=== PATIENT | female | born 1970 | race Caucasian/White ===

== ENCOUNTER 2019-11-10 23:19 | Emergency (ER) | payer SELFPAY ==
[~2019-11-10] VITALS: Ht 162 cm; Wt 103.8 kg
[~2019-11-10 23:19] MED LIST: ALDACTONE25 MG; LEVO25TA45
[2019-11-10] MEDS ORDERED: ASPIRIN 81 MG CHEW (CHILDREN'S ASA) PO ONE (23:30)
[2019-11-10] MEDS ORDERED: ANTACID SUSP 30 ML UDC (MYLANTA) PO ONE (23:30)
[2019-11-10] MEDS ORDERED: FAMOTIDINE 20MG/2ML IV (PEPCID) IVP ONE (23:30)
[2019-11-10] MEDS ORDERED: ONDANSETRON 4 MG/2 ML (SDV) Z0FRAN IVP ONE (23:30)
[2019-11-10] MEDS ORDERED: LIDOCAINE 2% VISCOUS 15 ML UDC PO ONE (23:30)
[2019-11-10 23:36] LABS: BASOPHILS % (AUTO) 0 % (0-10); EOSINOPHILS # (AUTO) 0.2 10^3/uL (0.0-0.3); EOSINOPHILS % (AUTO) 2 % (0-10); HEMATOCRIT 42 % (35-52); HEMOGLOBIN 13.7 G/DL (11.5-16.0); LYMPHOCYTES % (AUTO) 38 % (12-44); MEAN CORPUSCULAR HEMOGLOBIN 30 PG (25-34); MEAN CORPUSCULAR HGB CONC 33 G/DL (32-36); MEAN CORPUSCULAR VOLUME 92 FL (80-99); MEAN PLATELET VOLUME 9.8 FL (7.4-10.4); MONOCYTES # (AUTO) 0.7 X 10^3 (0.0-1.0); MONOCYTES % (AUTO) 8 % (0-12); NEUTROPHILS # (AUTO) 4.1 X 10^3 (1.8-7.8); NEUTROPHILS % (AUTO) 52 % (42-75); PLATELET COUNT 281 10^3/uL (130-400); RED CELL DISTRIBUTION WIDTH 14.1 % (10.0-14.5); WHITE BLOOD COUNT 7.9 10^3/uL (4.3-11.0)
[2019-11-10 23:45] LABS: PROTHROMBIN TIME PATIENT 13.1 SEC (12.2-14.7)
[2019-11-10 23:55] LABS: ALANINE AMINOTRANSFERASE 14 U/L (0-55); ALBUMIN 3.9 GM/DL (3.2-4.5); ALKALINE PHOSPHATASE 60 U/L (40-136); BILIRUBIN,TOTAL 0.2 MG/DL (0.1-1.0); BUN/CREATININE RATIO 18; CALCIUM 9.7 MG/DL (8.5-10.1); CARBON DIOXIDE 23 MMOL/L (21-32); CHLORIDE 105 MMOL/L (98-107); CREATININE SERUM 0.79 MG/DL (0.60-1.30); GFR ESTIMATED > 60; GLUCOSE 129 MG/DL (70-105); MAGNESIUM 1.9 MG/DL (1.6-2.4); POTASSIUM 3.8 MMOL/L (3.6-5.0); SODIUM 139 MMOL/L (135-145); TOTAL PROTEIN 7.5 GM/DL (6.4-8.2)
--- NOTE | 2019-11-11 00:02 | NUR ---
Patient states her pain is slightly improved and rates her pain at a 4 out of 10.
--- NOTE | 2019-11-11 00:54 | NUR ---
Report given to Joanne FLORES.
[2019-11-11 02:09] LABS: CHOLESTEROL 137 MG/DL (< 200); HDL CHOLESTEROL 54 MG/DL (40-60); TRIGLYCERIDES 86 MG/DL (<150); VLDL CHOLESTEROL 17 MG/DL (5-40)
--- NOTE | 2019-11-11 02:37 | ED Chest Pain ---
General Chief Complaint: Chest Pain Stated Complaint: CP Nursing Triage Note: Patient ambulatory to ER room 10 with spouse with complaint of chest pain that began tonight around 21:30. Patient states she was getting ready for bed when the chest pain started. She describes the pain as to the center of her chest radiating into her back and describes it as heaviness/tightness to the chest. Patient states the pain is worse with lying down. She did take Tums 1 hour ago. She does complain of nausea. Nursing Sepsis Screen: No Definite Risk Source: patient Exam Limitations: no limitations History of Present Illness Date Seen by Provider: Nov 11, 2019 Allergies and Home Medications Allergies Coded Allergies: No Known Drug Allergies (Verified Allergy, Unknown, 03/03/09) Past Vzagfin-Rvzwdh-Iwkxnb Hx Patient Social History Alcohol Use: Denies Use Recreational Drug Use: No Smoking Status: Never a Smoker 2nd Hand Smoke Exposure: No Recent Foreign Travel: No Contact w/Someone Who Travel: No Recent Infectious Disease Expo: No Recent Hopitalizations: No Physical Abuse: No Sexual Abuse: No Mistreated: No Fear: No Seasonal Allergies Seasonal Allergies: No Past Medical History Surgeries: Yes (shoulder, knee) Orthopedic Respiratory: Yes Asthma Cardiac: No Neurological: No Last Menstrual Period: Oct 14, 2019 Reproductive Disorders: No Sexually Transmitted Disease: Yes (HPV) Genitourinary: No Gastrointestinal: No Musculoskeletal: No Endocrine: No Cancer: No Psychosocial: No Blood Disorders: No Physical Exam Vital Signs Vital Signs - First Documented 11/10/19 11/11/19 23:19 02:43 Temp 37.1 Pulse 82 Resp 18 B/P (MAP) 168/101 (123) Pulse Ox 100 O2 Delivery Room Air Capillary Refill : Less Than 3 Seconds Height, Weight, BMI Height: '" Weight: lbs. oz. kg; 39.00 BMI Method: Progress/Results/Core Measures Results/Orders Lab Results Laboratory Tests Test 11/10/19 23:30 11/11/19 01:45 Range/Units White Blood Count 7.9 4.3-11.0 10^3/uL Red Blood Count 4.54 4.35-5.85 10^6/uL Hemoglobin 13.7 11.5-16.0 G/DL Hematocrit 42 35-52 % Mean Corpuscular Volume 92 80-99 FL Mean Corpuscular Hemoglobin 30 25-34 PG Mean Corpuscular Hemoglobin Concent 33 32-36 G/DL Red Cell Distribution Width 14.1 10.0-14.5 % Platelet Count 281 130-400 10^3/uL Mean Platelet Volume 9.8 7.4-10.4 FL Neutrophils (%) (Auto) 52 42-75 % Lymphocytes (%) (Auto) 38 12-44 % Monocytes (%) (Auto) 8 0-12 % Eosinophils (%) (Auto) 2 0-10 % Basophils (%) (Auto) 0 0-10 % Neutrophils # (Auto) 4.1 1.8-7.8 X 10^3 Lymphocytes # (Auto) 3.0 1.0-4.0 X 10^3 Monocytes # (Auto) 0.7 0.0-1.0 X 10^3 Eosinophils # (Auto) 0.2 0.0-0.3 10^3/uL Basophils # (Auto) 0.0 0.0-0.1 10^3/uL Prothrombin Time 13.1 12.2-14.7 SEC INR Comment 1.0 0.8-1.4 Activated Partial Thromboplast Time 30 24-35 SEC Sodium Level 139 135-145 MMOL/L Potassium Level 3.8 3.6-5.0 MMOL/L Chloride Level 105 98-107 MMOL/L Carbon Dioxide Level 23 21-32 MMOL/L Anion Gap 11 5-14 MMOL/L Blood Urea Nitrogen 14 7-18 MG/DL Creatinine 0.79 0.60-1.30 MG/DL Estimat Glomerular Filtration Rate > 60 BUN/Creatinine Ratio 18 Glucose Level 129 H 70-105 MG/DL Calcium Level 9.7 8.5-10.1 MG/DL Corrected Calcium 9.8 8.5-10.1 MG/DL Magnesium Level 1.9 1.6-2.4 MG/DL Total Bilirubin 0.2 0.1-1.0 MG/DL Aspartate Amino Transf (AST/SGOT) 16 5-34 U/L Alanine Aminotransferase (ALT/SGPT) 14 0-55 U/L Alkaline Phosphatase 60 40-136 U/L Myoglobin 20.8 10.0-92.0 NG/ML Troponin I < 0.028 < 0.028 <0.028 NG/ML Total Protein 7.5 6.4-8.2 GM/DL Albumin 3.9 3.2-4.5 GM/DL Triglycerides Level 86 <150 MG/DL Cholesterol Level 137 < 200 MG/DL LDL Cholesterol Direct 79 1-129 MG/DL VLDL Cholesterol 17 5-40 MG/DL HDL Cholesterol 54 40-60 MG/DL My Orders Orders - BENJAMIN GUERRERO MD Cbc With Automated Diff (11/10/19 23:21) Magnesium (11/10/19 23:21) Chest 1 View, Ap/Pa Only (11/10/19 23:21) Ekg Tracing (11/10/19 23:21) Comprehensive Metabolic Panel (11/10/19 23:21) Myoglobin Serum (11/10/19 23:21) Protime With Inr (11/10/19 23:21) Partial Thromboplastin Time (11/10/19 23:21) O2 (11/10/19 23:21) Monitor-Rhythm Ecg Trace Only (11/10/19 23:21) Ed Iv/Invasive Line Start (11/10/19 23:21) Troponin I (11/10/19 23:21) Famotidine Injection (Pepcid Injection) (11/10/19 23:30) Ondansetron Injection (Zofran Injectio (11/10/19 23:30) Lidocaine 2% Viscous 15 Ml (Xylocaine Vi (11/10/19 23:30) Antacid Suspension (Mylanta Suspension (11/10/19 23:30) Aspirin Chewable Tablet (Baby Aspirin Ch (11/10/19 23:30) Troponin I (11/11/19 01:30) Lipid Panel (11/11/19 01:45) Medications Given in ED Current Medications Medications Dose Ordered Sig/Deon Route Start Time Stop Time Status Last Admin Dose Admin Al Hydrox/Mg Hydrox/Simethicone 30 ml ONCE ONCE PO 11/10/19 23:30 11/10/19 23:32 DC 11/10/19 23:38 30 ML Aspirin 324 mg ONCE ONCE PO 11/10/19 23:30 11/10/19 23:32 DC 11/10/19 23:35 324 MG Famotidine 20 mg ONCE ONCE IVP 11/10/19 23:30 11/10/19 23:31 DC 11/10/19 23:38 20 MG Lidocaine HCl 15 ml ONCE ONCE PO 11/10/19 23:30 11/10/19 23:32 DC 11/10/19 23:38 15 ML Ondansetron HCl 4 mg ONCE ONCE IVP 11/10/19 23:30 11/10/19 23:32 DC 11/10/19 23:38 4 MG Vital Signs/I&O 11/10/19 11/11/19 23:19 02:43 Temp 37.1 37.1 Pulse 82 68 Resp 18 18 B/P (MAP) 168/101 (123) 151/86 (123) Pulse Ox 100 O2 Delivery Room Air Blood Pressure Mean: 123 Initial ECG Impression Date: Nov 10, 2019 Initial ECG Impression Time: 23:20 Initial ECG Rate: 81 Initial ECG Rhythm: Normal Sinus Initial ECG Intervals: Normal Initial ECG Impression: Normal Comment Normal sinus rhythm with no ST elevation or depression. No abnormal intervals or axis deviation. Diagnostic Imaging Diagonstic Imaging: Xray Plain Films/CT/US/NM/MRI: chest Comments Chest x-ray viewed by me and report not yet available. No acute abnormalities appreciated. Departure Impression Primary Impression: Chest pain Qualified Codes: R07.9 - Chest pain, unspecified Disposition: 01 HOME, SELF-CARE Condition: Improved Departure-Patient Inst. Decision time for Depature: 02:35 Referrals: NO,LOCAL PHYSICIAN (PCP/Family) Primary Care Physician Patient Instructions: Chest Pain (DC) Add. Discharge Instructions: Follow-up with your primary care provider soon as possible for monitoring of your blood pressure and evaluation of your chest pain Because your chest pain may be related to acid reflux, take an antacid rlab-uor-rsyuzyn such as Pepcid (famotidine) or Prilosec (omeprazole) 20 mg twice daily for the next couple of weeks. Also avoid the following: Eating large meals, eating close to bedtime, caffeine, carbonation, chocolate, citrus fruits and juices, tomato products, tobacco, alcohol, NSAID medications such as ibuprofen or naproxen, fatty or greasy foods, mints, spicy food, or anything else you know irritate your stomach. Take aspirin 81 mg daily until otherwise instructed by your doctor. Return to the emergency room if you have worsening symptoms. All discharge instructions reviewed with patient and/or family. Voiced understanding. Copy Copies To 1: DADA GLASER JOSHUA T MD Nov 11, 2019 02:37
[2019-11-11 02:43] VITALS: BP 151/86
--- NOTE | 2019-11-11 06:21 | Diagnostic Imaging Report ---
INDICATION: Chest pain. COMPARISON: None. FINDINGS: Single view of the chest demonstrates clear lungs bilaterally. The heart is normal. There is no pneumothorax. Osseous structures normal. IMPRESSION: Negative chest. Dictated by: Dictated on workstation # [id number]
== END 2019-11-11 02:51 | disposition home or self-care (01) ==
LOC: EDUNIT# 23:19 → ER 23:20
DX: R07.9 Chest pain, unspecified (principal)
CPT/HCPCS: 36415; 71045; 80053; 80061; 83735; 83874; 84484; 85025; 85610; 85730; 93005; 93041; 96374; 96375

== ENCOUNTER → 2020-10-26 | Outpatient (CLI) | payer OTHER ==
--- NOTE | 2020-10-26 12:38 | Diagnostic Imaging Report ---
INDICATION: Routine screening. COMPARISON: 08/09/2016 and 08/13/2014. TECHNIQUE: 2D and 3D bilateral screening mammography was performed with CAD. FINDINGS: Scattered fibroglandular densities are identified bilaterally. A benign nodule in the upper left breast is noted. There are no spiculated masses or malignant appearing microcalcifications. The axillae are unremarkable. IMPRESSION: No mammographic features suspicious for malignancy are identified. ACR BI-RADS Category 2: Benign findings. Result letter will be mailed to the patient. Note: At least 10% of breast cancer is not imaged by mammography. Dictated by: Dictated on workstation # [id number]
== END ==
LOC: RAD 07:49
PROVIDERS: ATTEND Nurse Practitioner Family
DX: Z12.31 Encounter for screening mammogram for malignant neoplasm of breast (principal)
CPT/HCPCS: 77063; 77067

== ENCOUNTER 2021-11-04 05:37 | Outpatient (CLI) | payer BC ==
[~2021-11-04] VITALS: Ht 162.5 cm; Wt 99.0 kg
[2021-11-06] MEDS ORDERED: LISI10TA25 PO (11:02)
[2021-11-06] MEDS ORDERED: CETI10CA PO (11:02)
== END 2021-11-06 11:11 | disposition home or self-care (01) ==
LOC: PREOP 05:37
PROVIDERS: ATTEND Surgery
DX: Z01.818 Encounter for other preprocedural examination (principal)

== ENCOUNTER 2021-11-11 07:15 | Day surgery (SDC) | payer BC ==
[2021-11-11] VITALS (12 sets, daily range): BP systolic 120–139; BP diastolic 49–79
[~2021-11-11] VITALS: Ht 162.5 cm; Wt 99.0 kg
[~2021-11-11 07:15] MED LIST changes: +CETI10CA PO; +LISI10TA25 PO
--- NOTE | 2021-11-11 08:01 | Progress Note-Pre Operative ---
Pre-Operative Progress Note H&P Reviewed The H&P was reviewed, patient examined and no changes noted. Date Seen by Provider: Nov 11, 2021 Time Seen by Provider: 08:00 Date H&P Reviewed: Nov 11, 2021 Time H&P Reviewed: 08:00 Pre-Operative Diagnosis: cholelithiasis HUMA FRAUSTO DO Nov 11, 2021 08:00
[2021-11-11] MEDS ORDERED: ceFAZolin 2 GM IV Premixed 50 ML IV ONE (08:15)
[2021-11-11] MEDS: LACTATED RINGERS 1,000 ML IV PRN ×2 (08:22→11:36)
[2021-11-11] MEDS ORDERED: MIDAZOLAM 2 MG/2 ML (VERSED) VIAL ONE (08:52)
[2021-11-11] MEDS ORDERED: fentaNYL INJ 100 MCG/2 ML AMP ONE (08:52)
[2021-11-11] MEDS ORDERED: SEVOFLURANE (ULTANE) 15 ML INHAL SOLN ONE ×2 (08:52→10:24)
[2021-11-11] MEDS ORDERED: proPOfol 200 MG/20 ML (DIPRIVAN) VIAL IV ONE (08:52)
[2021-11-11] MEDS ORDERED: ONDANSETRON 4 MG/2 ML (SDV) Z0FRAN ONE (08:52)
[2021-11-11] MEDS ORDERED: LIDOCAINE PF 2% 5 ML (XYLOCAINE) VIAL ONE (08:52)
[2021-11-11] MEDS ORDERED: LIDOCAINE/EPI 1%-1:200,000 (XYLOCAINE) 30 ML VIAL ONE (09:07)
[2021-11-11] MEDS ORDERED: ROCURONIUM 50 MG/5 ML (ZEMURON) VIAL IV ONE (10:23)
[2021-11-11] MEDS ORDERED: GLYCOPYRROLATE 0.2 MG/ML (ROBINUL) 2 ML VIAL ONE (10:28)
[2021-11-11] MEDS ORDERED: NEOSTIGMINE 3 MG/3 ML VIAL ONE (10:29)
[2021-11-11] MEDS ORDERED: ACHD5005 PO (10:33)
[2021-11-11] MEDS ORDERED: DOCU-143 PO (10:33)
--- NOTE | 2021-11-11 10:34 | Discharge Inst-Simple/Standard ---
Discharge Inst-Standard Discharge Medications New, Converted or Re-Newed RX: Transmitted to Pharmacy Patient Instructions/Follow Up Plan of Care/Instructions/FU: 2-3 weeks anabel Activity as Tolerated: No Discharge Diet: Regular Diet Other Inst to Patient Follow up Appt: Make appointment for 2 weeks. Instructions: No lifting greater than 10 pounds. No strenuous activity. May shower in 24 hours, no tub bath or soaking. Use incentive spirometer at home as directed. No Smoking Skin/Wound Care: You have special glue over incision, it will fall off on it's own. Symptoms to Report: Appetite Changes, Extremity Discoloration, Numbness/Tingling, Swelling Increased, Bleeding Excessive, Eyesight Changes, Pain Increased, Urine Color Change, Constipation(Persistent), Fever over 101 degree F, Pain/Pressure in chest, Urinating Difficulty, Cough Up/Vomit Blood, Heart Beat Irreg/Pounding, Pain/Pressure in jaw, Vaginal Bleeding Increase, Cramps in feet or legs, Lightheadedness, Pain/Pressure in shoulder, Diarrhea(Persistent), Memory Changes Suddenly, Questions/Concerns, Weight gain consecutive days, Dizziness/Fainting, Nausea/Vomiting, Shortness of Breath, Weight gain over 2 pounds. If eyes or skin turn yellow notify physician. If questions or concerns contact your physician Or seek help at emergency department. HUMA FRAUSTO DO Nov 11, 2021 10:34
--- NOTE | 2021-11-11 10:36 | Progress Note-Post Operative ---
Post-Operative Progess Note Surgeon (s)/Art History Instructor (s) Surgeon HUMA FRAUSTO DO Art History Instructor: Dr. Edge to assist in retraction dissection and closure. Pre-Operative Diagnosis cholelithiasis Post-Operative Diagnosis same Procedure & Operative Findings Date of Procedure 11/11/21 Procedure Performed/Findings PROCEDURE: Laparoscopic cholecystectomy with intraoperative cholangiogram. COMPLICATIONS: None. PROCEDURE: The patient was taken to the operating suite and was prepped and draped in sterile fashion. A surgical pause was performed. Just superior to the umbilicus, a 12 mm incision was made. Dissection was taken down to the fascia, which was then scored and grasped with a Daniel and the abdomen was then entered. A 0 Vicryl suture was placed in a kclaza-ih-ewxnh fashion and a Martinez trocar was placed and secured. Pneumoperitoneum was achieved. A 5mm trochar place in the subxyphoid and 2 in the right upper quadrant. The gallbladder was then grasped and elevated. The cystic duct, and cystic artery were then dissected out. Clip was placed on the distal portion of the cystic duct which was then partially transected. An arrow catheter was inserted into the duct. The cholangiogram was then performed. No filing defects and contrast made its way into the duodenum. Catheter removed. Clips were placed on proximal portion of the cystic duct and then the duct was then transected. Clips were placed along the proximal and distal portion of the cystic artery which was then transected. Hook cautery was used to dissect the gallbladder from the gallbladder fossa achieving hemostasis. The gallbladder was placed in an Endobag and removed through the 12 mm trocar site. The abdomen was then reinspected. Copious amounts of irrigation were used to irrigate the abdomen and there were no signs of active bleeding. Slight ooze from gallbladder fossa so piece of surgicel placed in it. Hemostasis had been achieved. The 12 mm fascial defect was then closed with 0 Vicryl suture that had been placed in a aemyhc-uc-anpok fashion. The abdomen was then desufflated, the trocars were removed. The abdomen was then washed and dried. The skin was then closed using 4-0 Monocryl in a subcuticular fashion. The abdomen was washed and dried and Skin Affix was place over incisions. Patient tolerated the procedure well without any complications and was taken to the recovery room in stable condition. Anesthesia Type general Estimated Blood Loss Estimated blood loss (mL): minimal Specimens/Packing Specimens Removed gallbladder Packing: [email or web address] HUMA FRAUSTO DO Nov 11, 2021 10:36
[2021-11-11] MEDS ORDERED: SUGAMMADEX 500 MG/5 ML VIAL (BRIDION) IV ONE (10:45)
[2021-11-11] MEDS ORDERED: ONDANSETRON 4 MG/2 ML (SDV) Z0FRAN IVP PRN (11:00)
[2021-11-11] MEDS ORDERED: HYDROmorphone 2 MG/ML VIAL (DILAUDID) IV ONE (11:00)
--- NOTE | 2021-11-11 11:30 | Diagnostic Imaging Report ---
INDICATION: Fluoroscopy during intraoperative cholangiogram. Fluoroscopy was provided in the OR during intraoperative cholangiogram. 12 seconds of fluoroscopic time was utilized. 62 images were obtained. Images demonstrate contrast being injected via the cystic duct remnant. Intrahepatic and extrahepatic bile ducts are normal caliber. There are no filling defects to suggest retained stone. Contrast flows into the duodenum. IMPRESSION: Fluoroscopy during intraoperative cholangiogram. Dictated by: Dictated on workstation # [id number]
--- NOTE | 2021-11-11 11:44 | Anesthesia-General Post-Op ---
General Patient Condition Mental Status/LOC: Same as Preop Cardiovascular: Satisfactory Nausea/Vomiting: Absent Respiratory: Satisfactory Pain: Controlled Complications: Absent Post Op Complications Complications None Follow Up Care/Instructions Patient Instructions None needed. Anesthesia/Patient Condition Patient Condition Patient is doing well, no complaints, stable vital signs, no apparent adverse anesthesia problems. No complications reported per nursing. D/C home per [facility] Criteria: Yes ALEE HUGO CRNA Nov 11, 2021 11:44
== END 2021-11-11 13:25 | disposition home or self-care (01) ==
LOC: SDC 07:15
PROVIDERS: ATTEND Surgery
DX: K80.10 Calculus of gallbladder with chronic cholecystitis without obstruction (principal); I10 Essential (primary) hypertension; J45.909 Unspecified asthma, uncomplicated; E66.9 Obesity, unspecified; Z68.37 Body mass index [BMI] 37.0-37.9, adult; Z79.899 Other long term (current) drug therapy
CPT/HCPCS: 76000; 84703; 87081; 88304

== ENCOUNTER → 2021-11-30 | Outpatient (CLI) | payer BC ==
[~2021-11-30] MED LIST changes: +ACHD5005 PO; +DOCU-143 PO
--- NOTE | 2021-11-30 16:00 | Diagnostic Imaging Report ---
INDICATION: Routine screening. COMPARISON: 10/26/2020 and 08/09/2016. TECHNIQUE: 2D and 3D bilateral screening mammography was performed with CAD. FINDINGS: Scattered fibroglandular densities are identified bilaterally. The parenchymal pattern is stable. No dominant mass or malignant-appearing microcalcifications are seen. Axillae are unremarkable. IMPRESSION: No mammographic features suspicious for malignancy are identified. ACR BI-RADS Category 1: Negative. Result letter will be mailed to the patient. Note: At least 10% of breast cancer is not imaged by mammography. Dictated by: Dictated on workstation # [id number]
== END ==
LOC: RAD 14:45
PROVIDERS: ATTEND Physician Assistant
DX: Z12.31 Encounter for screening mammogram for malignant neoplasm of breast (principal)
CPT/HCPCS: 77063; 77067

== ENCOUNTER → 2021-12-30 | Outpatient (CLI) | payer BC | LOC: ORTHO 11:03 | PROVIDERS: ATTEND Orthopaedic Surgery | DX: M17.11 Unilateral primary osteoarthritis, right knee (principal) | CPT/HCPCS: 99203 ==

== ENCOUNTER → 2022-04-27 | Outpatient (CLI) | payer BC ==
--- NOTE | 2022-04-27 16:32 | Diagnostic Imaging Report ---
INDICATION: DVT. Status post previous total knee arthroplasty. COMPARISON: None. TECHNIQUE: Duplex, villalta-scale and color-flow imaging of the right lower extremity venous system was performed. FINDINGS: The common femoral vein, superficial femoral vein, profunda femoris, and popliteal veins are normal. These vessels show normal compressibility, color flow, and Doppler augmentation. The deep calf veins, although not very well seen, demonstrate no distinct intraluminal thrombus. IMPRESSION: Negative venous Doppler of the right lower extremity. Dictated by: Dictated on workstation # [id number]
== END ==
LOC: RAD 15:55
PROVIDERS: ATTEND Nurse Practitioner Family
DX: Z96.651 Presence of right artificial knee joint (principal); Z86.718 Personal history of other venous thrombosis and embolism

== ENCOUNTER 2022-09-27 05:38 | Outpatient (CLI) | payer BC ==
[~2022-09-27] VITALS: Ht 162.6 cm; Wt 97.3 kg
[2022-09-27] MEDS ORDERED: MELO15TA39 PO (15:52)
[2022-09-27] MEDS ORDERED: FLUT9.9S NS (15:52)
== END 2022-09-27 15:54 ==
LOC: PREOP 05:38
PROVIDERS: ATTEND Surgery
DX: Z01.818 Encounter for other preprocedural examination (principal)

== ENCOUNTER 2022-10-04 08:11 | Day surgery (SDC) | payer BC ==
[~2022-10-04] VITALS: Ht 162.6 cm; Wt 97.3 kg
[~2022-10-04 08:11] MED LIST changes: +FLUT9.9S NS; +MELO15TA39 PO
[2022-10-04] MEDS ORDERED: LACTATED RINGERS 1,000 ML IV STA (08:21)
[2022-10-04] MEDS ORDERED: ceFAZolin INJECTION 2,000 MG ONE (08:24)
[2022-10-04 08:25] VITALS: BP 142/85
[2022-10-04] MEDS ORDERED: NS (IVPB) 50 ML ONE (08:25)
[2022-10-04] MEDS ORDERED: ceFAZolin INJECTION 2,000 MG in NS (IVPB) 50 ML IV ONE (08:30)
[2022-10-04] MEDS ORDERED: PROPOFOL INJECTION 50 ML IV ONE (09:37)
--- NOTE | 2022-10-04 10:17 | Discharge Inst-Simple/Standard ---
Discharge Inst-Standard Patient Instructions/Follow Up Plan of Care/Instructions/FU: Follow-up for repeat colonoscopy in 10 years. If any issues prior to that, please contact Dr. Flores's office. Activity as Tolerated: Yes Discharge Diet: Regular Diet (High fiber) HUMA FLORES DO Oct 04, 2022 10:17
[2022-10-04 10:23] VITALS: BP 119/73
[2022-10-04 10:25] VITALS: BP 121/78
[2022-10-04 11:13] VITALS: BP 121/78
--- NOTE | 2022-10-04 12:12 | Anesthesia-General Post-Op ---
MAC Patient Condition Mental Status/LOC: Same as Preop Cardiovascular: Satisfactory Nausea/Vomiting: Absent Respiratory: Satisfactory Pain: Controlled Complications: Absent Post Op Complications Complications None Follow Up Care/Instructions Patient Instructions None needed. Anesthesiology Discharge Order Discharge Order Patient is doing well, no complaints, stable vital signs, no apparent adverse anesthesia problems. No complications reported per nursing. LEAN BOB CRNA Oct 04, 2022 12:12
--- NOTE | 2022-10-04 15:42 | OPERATIVE REPORT ---
DATE OF SERVICE: 10/04/2022 PREOPERATIVE DIAGNOSIS: Screening colonoscopy. POSTOPERATIVE DIAGNOSIS: Diverticulosis. PROCEDURE: Colonoscopy. SURGEON: Huma Flores DO. ANESTHESIA: Per CLERK TYPIST. ESTIMATED BLOOD LOSS: None. COMPLICATIONS: None. INDICATIONS: The patient is a 52-year-old female with the need for screening colonoscopy. She understands risks and benefits of procedure and wished to proceed. Consent was signed in chart. DESCRIPTION OF PROCEDURE: The patient was taken to the endoscopy suite, placed in left lateral position. Timeout was performed. Digital rectal exam was performed. No palpable polyps, masses or ulcerations. Scope was inserted in the rectum and advanced all the way to the cecum with minimal difficulty. Prep was adequate. Scope was then slowly retracted back. No polyps, masses or ulcerations in the cecum, ascending, transverse, descending and sigmoid colon. Very minimal amount of diverticulosis throughout the colon. Once in the rectum, scope was retroflexed, noting no other pathology. Scope returned to its normal position, slowly withdrawn until completely removed. The patient tolerated the procedure well without complications. She was taken to recovery room in stable condition. RECOMMENDATIONS: The patient will have repeat colonoscopy in 10 years. Any issues before that be seen at that time. Job ID: [id number] DocumentID: [id number] Dictated Date: 10/04/2022 10:27:36 C D Area Supervisor Date: 10/04/2022 15:40:00 Dictated By: HUMA FLORES DO
== END 2022-10-04 11:14 | disposition home or self-care (01) ==
LOC: ENDO 08:11
PROVIDERS: ATTEND Surgery
DX: Z12.11 Encounter for screening for malignant neoplasm of colon (principal); K57.30 Diverticulosis of large intestine without perforation or abscess without bleeding; E66.9 Obesity, unspecified; Z68.36 Body mass index [BMI] 36.0-36.9, adult

== ENCOUNTER → 2022-12-26 | Outpatient (CLI) | payer BC ==
--- NOTE | 2022-12-27 12:35 | Diagnostic Imaging Report ---
3D bilateral screening mammogram with CAD. This study was compared to the prior exams of 11/30/2021, 10/26/2020 and 08/09/2016. At this time there are no current complaints. The current study was also evaluated with a Computer Aided Detection (CAD) system. FINDINGS: There are scattered fibroglandular densities in both breasts which could obscure a lesion. Overall, there does not appear to have been any significant change when compared to the prior exam. No primary or secondary sign of malignancy is noted. IMPRESSION: There is no radiographic evidence for malignancy. ACR BI-RADS Category 1: Negative. Result letter will be mailed to the patient. Note: At least 10% of breast cancer is not imaged by mammography. Dictated by: Dictated on workstation # [id number]
== END ==
LOC: RAD 13:56
PROVIDERS: ATTEND Nurse Practitioner Family
DX: Z12.31 Encounter for screening mammogram for malignant neoplasm of breast (principal)
CPT/HCPCS: 77063; 77067

== ENCOUNTER 2023-02-13 13:42 | Emergency (ER) | payer OTHER, BC ==
[2023-02-13 14:00] VITALS: BP 111/73
--- NOTE | 2023-02-13 14:18 | ED Lower Extremity ---
General Chief Complaint: Lower Extremity Stated Complaint: RT KNEE INJ | WC History of Present Illness Date Seen by Provider: February 13, 2023 Time Seen by Provider: 14:08 Initial Comments Patient is a 52-year-old female who presents to the emergency room with a chief complaint of knee pain. Patient is status post knee replacement April of last year. Dr. Longoria at [facility] states did her knee replacement. She states she was at work today sitting on the floor and went to get up and felt and heard a pop. She has had pain with ambulation since. No numbness tingling or weakness. She reports anterior and posterior knee pain. Did not fall. No direct trauma. No other complaints of pain or illness. Onset: this afternoon Severity: moderate Pain/Injury Location: right knee Method of Injury: twisted Modifying Factors: Improves With Immobilization Allergies and Home Medications Allergies Coded Allergies: No Known Drug Allergies (Verified , 09/27/22) Patient Home Medication List Home Medication List Reviewed: Yes Cetirizine HCl (Zyrtec) 10 Mg Capsule, 10 MG PO DAILY PRN for PRN, (Reported) Entered as Reported by: PADMINI BALTAZAR on 11/06/211101 Fluticasone Propionate (Flonase Allergy Relief) 50 Mcg/Actuation [place].susp, 1 SPRAY NS DAILY, (Reported) Entered as Reported by: FAISAL MORROW on 09/27/22 155 Lisinopril (Lisinopril) 10 Mg Tablet, 10 MG PO DAILY, (Reported) Entered as Reported by: PADMINI BALTAZAR on 11/06/21 110 Meloxicam (Meloxicam) 15 Mg Tablet, 15 MG PO UD, (Reported) Entered as Reported by: FAISAL MORROW on 09/27/22 155 Review of Systems Constitutional: see HPI Respiratory: no symptoms reported Cardiovascular: no symptoms reported Gastrointestinal: no symptoms reported Musculoskeletal: joint pain (right knee) Skin: no symptoms reported Past Krzrzlm-Doitqw-Hvgkgt Hx Patient Social History Tobacco Use?: No Use of E-Cig and/or Vaping dev: No Substance use?: No Alcohol Use?: No Pt feels they are or have been: No Immunizations Up To Date First/Initial COVID19 Vaccinat: 2020 Second COVID19 Vaccination Aleks: 2020 Third COVID19 Vaccination Date: MODERNA 09/10/2021 Seasonal Allergies Seasonal Allergies: No Past Medical History Surgery/Hospitalization HX: arhtirits, htn r knee repalcement april 2022 Surgeries: Yes (shoulder SCOPE RIGHT , knee RIGHT TKR) Gallbladder, Orthopedic Respiratory: Yes (HX USE OF INHALERS, NOT CURRENTLY USING) Asthma Currently Using CPAP: No Currently Using BIPAP: No Cardiac: Yes Hypertension Neurological: No Reproductive Disorders: No Sexually Transmitted Disease: Yes (HPV) Genitourinary: Yes Kidney Stones Gastrointestinal: Yes Gastroesophageal Reflux, Gall Bladder Disease Musculoskeletal: Yes Degenerate Disk Disease, Arthritis Endocrine: No HEENT: No Cancer: No Psychosocial: No Integumentary: No Blood Disorders: No Family Medical History Heart Disease Physical Exam Vital Signs Capillary Refill : Height, Weight, BMI Height: '" Weight: lbs. oz. kg; 36.80 BMI Method: General Appearance: WD/WN, no apparent distress HEENT: PERRL/EOMI Cardiovascular: regular rate, rhythm Respiratory: no respiratory distress, no accessory muscle use Hips: bilateral hip non-tender, bilateral hip normal inspection, bilateral hip normal range of motion, bilateral hip no evidence of injury Knees: right knee other (increased warmth over anterior knee joint. minimal swelling. no anterior knee tenderess. some tenderness in posterior popliteal area; no distal ecema, tenderness) Feet: bilateral foot non-tender, bilateral foot normal inspection, bilateral foot normal range of motion, bilateral foot no evidence of injury Neurologic/Psychiatric: alert, normal mood/affect, oriented x 3 Skin: normal color, warm/dry Progress/Results/Core Measures Results/Orders My Orders Orders - URMILA OROZCO MD Knee, Right, 3 Views (02/13/23 14:10) Diagnostic Imaging Diagonstic Imaging: Xray Comments Knee xray - interpreted by me - no fracture/dislocation Departure Impression Primary Impression: Knee pain, acute Qualified Codes: M25.561 - Pain in right knee Disposition: 01 HOME, SELF-CARE Condition: Stable Departure-Patient Inst. Decision time for Depature: 14:36 Referrals: [facility] (PCP/Family) Primary Care Physician Patient Instructions: Knee Pain ED Add. Discharge Instructions: Ice pack to the right knee off and on for the next 48 hours. Crutch walking with toe touch weight bearing until follow up with Dr Longoria. Take ibuprofen 3 pills (600mg) every 6 hours with food or over the counter alleve 2 pills twice a day with food for pain. Call and make a follow up appointment with Dr Longoria for next week. Return to the Emergency Department for any new, concerning or emergent complaints. Work/School Note: Work Release Form Date Seen in the Emergency Department: February 13, 2023 Return to Work: February 15, 2023 Copy Copies To 1: DADA GLASER KATHRYN M MD February 13, 2023 14:18
--- NOTE | 2023-02-13 14:43 | Diagnostic Imaging Report ---
Indication: Right knee pain AP, oblique, and lateral views of the right knee are obtained. No fracture or acute bony abnormality seen. Right knee prosthesis appears in good alignment. There is no sign of device loosening. Impression: Well-aligned right knee prosthesis with no acute bone abnormality. Dictated by: Dictated on workstation # [id number]
== END 2023-02-13 15:02 | disposition home or self-care (01) ==
LOC: EDUNIT# 13:42 → ER 13:45
DX: M25.561 Pain in right knee (principal); M25.461 Effusion, right knee; Z96.651 Presence of right artificial knee joint; X50.1XXA Overexertion from prolonged static or awkward postures, initial encounter; Y92.59 Other trade areas as the place of occurrence of the external cause; Y99.0 Civilian activity done for income or pay
CPT/HCPCS: 73562; 99283